=== PATIENT | female | born 1945 | race Caucasian/White ===

== ENCOUNTER 2018-11-10 15:09 | Emergency (ER) | payer BC, OTHER ==
--- NOTE | 2018-11-10 15:15 | PDOC ---
Attending Attestation - Resident Resident Name: Maria MChester - ED Attending Attestation I have performed the following: I have examined & evaluated the patient, The case was reviewed & discussed with the resident, I agree w/resident's findings & plan, Exceptions are as noted - HPI HPI: 11/10/18 16:05 73yo female with hx of knee pain and sciatica - hurt her knee back in july when she fell outside of [facility]. Last monday she was running to get in a family photo for the holidays when she hurt her knee and flared up her sciatica. No falls. No swelling, no warmth, no paresthesias. No weakness. Pt denies rashes. Pt has taken aleve intermittently with minimal relief. Pt applied heat to her knee this AM with worsening pain. Took Aleve at noon which has helped her pain. - Physicial Exam PE: 11/10/18 16:07 Gen: aaox3, nad heart: +s1s2 reg lungs: cta b/l abd: soft, nt/nd +bs back: no midline ttp, no stepoffs or deformities, no paraspinal ttp, no SI joint ttp ext: no c/c/e, no knee effusion, no ttp over the knee, negative anterior drawer , negative vargus and valgus stress testing, muscle strength 5/5 LE, sensation intact, pedal pulses intact, FROM of the knee neuro: sensation intact, muscle strength 5/5, ambulatory with a steady gait. - Medical Decision Making 11/10/18 15:15 I, Dr. Krystyna Dumont, DO, attest that this document has been prepared under my direction and personally reviewed by me in its entirety. I further attest, that it accurately reflects all work, treatment, procedures and medical decision -making performed by me. 11/10/18 16:09 a/p: 73yo female with hx of sciatica and knee pain -suspect arthritis -xray shows arthritis changes -pt with normal msk exam -suspect arthritis flare and sciatica -pt follows with Dr. Lorenzo -feels better after tylenol -discussed ice instead of heat -discussed naprosyn -discussed follow up with Dr. Lorenzo -stable for d/c to home
[2018-11-10] MEDS ORDERED: ACETAMINOPHEN 500 MG TABLET (FP) PO ONE (15:24)
[2018-11-10 15:25] VITALS: BP 174/74; PULSE 60; TEMP 97.4; BMI 27.3
[2018-11-10] MEDS ORDERED: ACETAMINOPHEN 500 MG TABLET (FP) ONE (15:28)
--- NOTE | 2018-11-10 15:40 | PDOC ---
History of Present Illness - General Chief Complaint: Pain Stated Complaint: RIGHT KNEE PAIN 2 WEEKS Time Seen by Provider: 11/10/18 15:14 - History of Present Illness Initial Comments: 11/10/18 15:42 73f with pmh of osteoarthritis, presents to the Ed with acute on chronic knee pain and sciatica over the right lower extremity. She usually has had pain over the left knee, receive a cartilage injection over the summer in both knees. She also fell over her knee after tripping back in May. Usually sees Dr. Lorenzo for her orthopedic needs. She can ambulate but pain is worse after overuse. Took two aleves today with a heat pad, felt some relief. 11/10/18 15:52 11/10/18 16:16 Past History - Past Medical History Allergies/Adverse Reactions: Allergies Allergy/AdvReac Type Severity Reaction Status Date / Time rabeprazole sodium Allergy Severe Hives Verified 12/12/13 08:00 [From Aciphex] Home Medications: Ambulatory Orders Atorvastatin Ca [Lipitor] 20 mg PO HS 12/12/13 Nebivolol [Bystolic -] 5 mg PO BID 12/12/13 [place]-3 Acid Ethyl Esters [Lovaza -] 1 gm PO DAILY 12/12/13 Aspirin [Adult Aspirin Regimen] 81 mg PO DAILY 11/10/18 COPD: No HTN: Yes Hypercholesterolemia: Yes - Suicide/Smoking/Psychosocial Hx Smoking History: Never smoked Have you smoked in the past 12 months: No Information on smoking cessation initiated: No Hx Alcohol Use: No Drug/Substance Use Hx: No Substance Use Type: None Review of Systems - Review of Systems Able to Perform ROS?: Yes Is the patient limited Pakistani proficient: No Constitutional: No: Symptoms Reported HEENTM: No: Symptoms Reported Respiratory: No: Symptoms reported Cardiac (ROS): No: Symptoms Reported ABD/GI: No: Symptoms Reported : No: Symptoms Reported Musculoskeletal: Yes: See HPI Integumentary: No: Symptoms Reported Neurological: No: Symptoms reported All Other Systems: Reviewed and Negative *Physical Exam - Vital Signs Last Vital Signs Temp Pulse Resp BP Pulse Ox 97.4 F L 60 16 174/74 H 98 11/10/18 15:10 11/10/18 15:10 11/10/18 15:10 11/10/18 15:10 11/10/18 15:10 - Physical Exam General Appearance: Yes: Nourished, Appropriately Dressed. No: Apparent Distress HEENT: positive: EOMI, JAIME, Normal ENT Inspection Respiratory/Chest: positive: Lungs Clear, Normal Breath Sounds. negative: Chest Tender, Respiratory Distress Cardiovascular: positive: Regular Rhythm, Regular Rate, S1, S2 Gastrointestinal/Abdominal: positive: Normal Bowel Sounds, Flat, Soft. negative : Tender Extremity: positive: Other (left knee non-tender, not swollen, not erythematous or warm. Negative anterior and posterior drawer signs) Neurologic: positive: Fully Oriented, Alert, Normal Mood/Affect, Normal Response , Motor Strength 5/5 Moderate Sedation - Procedure Monitoring Vital Signs: Procedure Monitoring Vital Signs Temperature 97.4 F L 11/10/18 15:10 Pulse Rate 60 11/10/18 15:10 Respiratory Rate 16 11/10/18 15:10 Blood Pressure 174/74 H 11/10/18 15:10 O2 Sat by Pulse Oximetry (%) 98 11/10/18 15:10 ED Treatment Course - Medications Given in the ED: ED Medications Discontinued Medications Generic Name Dose Route Start Last Admin Trade Name Freq PRN Reason Stop Dose Admin Acetaminophen 1,000 mg 11/10/18 15:24 11/10/18 15:29 Tylenol - PO 11/10/18 15:25 1,000 mg ONCE ONE Administration Medical Decision Making - Medical Decision Making 11/10/18 15:47 73f with osteoarthritis presetns with acute on chronic arthritis knee pain. Will still obtain xray to r/o any other etiologies like fractures but unlikely due to physical exam. As the patient already took Aleve today we will treat with tylenol. 11/10/18 16:16 Patient feels better, ok to discharge with follow up with Dr. Lorenzo. *DC/Admit/Observation/Transfer Diagnosis at time of Disposition: Osteoarthritis - Discharge Dispostion Disposition: HOME Condition at time of disposition: Stable Decision to Admit order: No - Referrals - Patient Instructions Printed Discharge Instructions: DI for Osteoarthritis, DI for Sciatica Additional Instructions: Follow up with Dr. Lorenzo. Come back to the emergency department for any new, worsening or concerning symptom. - Post Discharge Activity
== END 2018-11-10 16:26 | disposition home or self-care (01) ==
LOC: FER 15:09
DX: M19.90 Unspecified osteoarthritis, unspecified site (principal); G89.29 Other chronic pain; I10 Essential (primary) hypertension
CPT/HCPCS: 73562-TC-RT-FY; 99282-25

== ENCOUNTER 2020-06-09 06:03 | Day surgery (SDC) | payer BC ==
[2020-06-09] MEDS ORDERED: CEFAZOLIN 2 GM in DEXTROSE 5%-WATER - 50 ML IVPB ONE (06:19)
[2020-06-09] MEDS ORDERED: TRANEXAMIC ACID 1000 MG/10 ML VIAL IVPUSH ONE (06:19)
[2020-06-09] MEDS ORDERED: MIDAZOLAM HCL 2 MG/2 ML SINGLE DOSE VIAL ONE ×2 (06:53)
[2020-06-09] MEDS ORDERED: BUPIVACAINE HCL/PF 0.5% (5MG/ML) 10 ML VIAL ONE ×2 (06:54→07:37)
[2020-06-09 06:57] VITALS: BMI 26.7
[2020-06-09] MEDS: CELECOXIB 200 MG CAPSULE PO ONE ×2 (07:00→10:56)
[2020-06-09] MEDS ORDERED: ceFAZolin SODIUM 1 GM VIAL ONE ×2 (07:05→07:17)
[2020-06-09] MEDS ORDERED: THROMBIN (RECOMBINANT) 5,000 UNIT VIAL TP ONE (07:05)
[2020-06-09] MEDS ORDERED: PROPOFOL 20 ML ONE ×2 (07:17)
[2020-06-09] MEDS ORDERED: ONDANSETRON 4 MG/2 ML VIAL IVPUSH PRN (07:57)
[2020-06-09] MEDS ORDERED: MAG HYDROX/AL HYDROX/SIMETH 30 ML UNIT-DOSE CUP PO PRN (07:57)
--- NOTE | 2020-06-09 07:59 | HP ---
[facility] - Chief Complaint Chief Complaint: left knee pain - Past Medical History Allergies/Adverse Reactions: Allergies Allergy/AdvReac Type Severity Reaction Status Date / Time rabeprazole sodium Allergy Severe Hives Verified 12/12/13 08:00 [From Aciphex] - Current Medications Current Medications: Home Medications Medication Instructions Recorded Nebivolol [Bystolic -] 10 mg PO DAILY 12/12/13 Aspirin [Adult Aspirin Regimen] 81 mg PO DAILY 11/10/18 Cholecalciferol (Vitamin D3) 2,000 unit PO DAILY 05/29/20 [Vitamin D3] Icosapent Ethyl [Vascepa] 2 gm PO BID 05/29/20 Pitavastatin Calcium [Livalo] 4 mg PO HS 05/29/20 [facility]ellite Physical Exam - Physical Examination Vital Signs: Vital Signs Period Temp Pulse Resp BP Sys/Leal Pulse Ox Last 24 Hr 98.4 F 66 18 163/83 96 General Appearance: Well Nourished, Well Developed, Alert & Oriented x3 ENT: Clear Lung: Normal air movement Extremities: Other (left knee- + swelling, + ttp medially, decr rom, nvi, xrays show grade 4 medial djd) Neurological: Intact, Alert, Oriented [facility]ellite Impression/Plan - Impression/Plan Impression: left knee medial djd Operative Procedure: left medial nataliia ukr Date to be Performed: 06/09/20
[2020-06-09] MEDS ORDERED: LACTATED RINGERS SOLUTION 1,000 ML IV SCH (08:00)
[2020-06-09] MEDS ORDERED: EPHEDRINE SULFATE/0.9% NACL/PF 50 MG/10 ML SYRINGE NR ONE (08:21)
[2020-06-09] MEDS ORDERED: THROMBIN (BOVINE) 5,000 UNIT VIAL TP ONE ×2 (08:30→08:54)
[2020-06-09] MEDS ORDERED: GELATIN, ABSORBABLE 100 EACH SPONGE TP ONE ×2 (08:30→08:54)
[2020-06-09] MEDS ORDERED: BUPIVICAINE 0.25%/MORPH PF/KETOROLAC - 51ML DISP.SYRINGE IA ONE ×4 (08:31→13:10)
--- NOTE | 2020-06-09 09:29 | OP ---
Operative Note - Note: Operative Date: 06/09/20 (alexia) Pre-Operative Diagnosis: left knee medial djd Operation: left medial nataliia ukr Post-Operative Diagnosis: Same as Pre-op Surgeon: Diomedes Duran Event Crew Technician: Joaquin Wu ([facility]) Anesthesia: Spinal, Local Specimens Removed: bone fragments Estimated Blood Loss (mls): 100
[2020-06-09] MEDS: MULTIVITAMINS (DAILY MVI) TABLET (FP) PO SCH (10:57)
[2020-06-09] MEDS ORDERED: oxyCODONE HCL 5 MG TABLET PO PRN (11:25)
[2020-06-09] MEDS: ACETAMINOPHEN 325 MG TABLET (FP) PO SCH ×3 (11:51→23:33)
[2020-06-09] MEDS: CEFAZOLIN 2 GM/D5W 2 GM/50 ML ML IVPB SCH ×2 (17:00→23:33)
[2020-06-09] MEDS: SENNOSIDES/DOCUSATE COMBO (SENNA PLUS) TABLET (UD) PO SCH (21:10)
[2020-06-09] MEDS ORDERED: ATORVASTATIN CA 20 MG TABLET (FP) PO SCH (22:00)
[2020-06-10] MEDS: oxyCODONE HCL 5 MG TABLET PO PRN ×2 (00:01→06:12)
[2020-06-10] MEDS: ACETAMINOPHEN 325 MG TABLET (FP) PO SCH (06:12)
[2020-06-10 06:49] VITALS: BP 134/58; PULSE 61; TEMP 97.9
[2020-06-10] MEDS ORDERED: ASPIRIN 325 MG TABLET PO SCH (08:00)
[2020-06-10] MEDS ORDERED: NEBIVOLOL 10 MG TABLET (FP) PO SCH (10:00)
[2020-06-10] MEDS: MULTIVITAMINS (DAILY MVI) TABLET (FP) PO SCH (10:40)
[2020-06-10] MEDS: SENNOSIDES/DOCUSATE COMBO (SENNA PLUS) TABLET (UD) PO SCH (10:40)
--- NOTE | 2020-06-10 11:03 | PN ---
Progress Note (short form) - Note Progress Note: Ortho Pt seen and examined s/p left medial nataliia ukr pod #1 Selected Entries 06/10/20 06:00 Temperature 97.9 F Pulse Rate 61 Respiratory 18 Rate Blood Pressure 134/58 L Dressing c/d/i, calf soft, nt rom 0-40, nvi a/p PT dvt ppx pain control d/c home today f/u in 1 week
--- NOTE | 2020-06-10 11:05 | DS ---
Physical Examination Vital Signs: Vital Signs Temperature 97.9 F 06/10/20 06:00 Pulse Rate 61 06/10/20 06:00 Respiratory Rate 18 06/10/20 06:00 Blood Pressure 134/58 L 06/10/20 06:00 O2 Sat by Pulse Oximetry (%) 99 06/10/20 06:00 Discharge Summary Problems reviewed: Yes Reason For Visit: OSTEOARTHRITIS Procedures: Principal: left medial nataliia ukr Hospital Course: admitted for elective left medial nataliia ukr, post-op per protocol, stable for d/c Condition: Good - Instructions Diet, Activity, Other Instructions: Post-op Instructions-Partial Knee Replacement Call the office for a follow-up appointment in 1 week - [phone] Aspirin 325mg daily for 6 weeks. Pain medication was sent into your pharmacy. Apply Graduated Compression Stockings (TEDs) to both lower extremities- remove daily for hygiene ONLY Apply Sequential Compression Device (SCDs) to both Lower extremities remove for PT and hygiene ONLY Apply cold packs to affected area for 15 minutes every 2 hours. Physical Therapist will come to your home for the first 5 days. You will be set up with outpatient PT at your first post-operative visit. Patient may ambulate as tolerated-encourage self care (at least every 2-3 hours while awake) with walker or cane Maintain Aquacel (waterproof) dressing to operative wound (will be removed by surgeon at first office visit) Shower with Aquacel dressing in place-if Aquacel integrity compromised, remove and apply dry sterile dressing and notify Orthopedist. DO NOT SHOWER unless Orthopedists approves without Aquacel dressing CONTACT THE OFFICE FOR ANY CHANGE IN YOUR CONDITION (for example-fever greater than 102 degrees, excessive bleeding from operative site, purulent drainage, severe swelling or pain) GO TO THE EMERGENCY ROOM IF THERE IS A MEDICAL EMERGENCY Knee Precautions: * Keep a rolled towel under affected heel while in bed or chair (to keep knee in extension) * Keep affected leg elevated except during mealtimes * DO NOT PLACE PILLOW UNDER AFFECTED KNEE * If you have any questions, please do not hesitate to call the office - [phone]. Referrals: Diomedes Duran MD [Staff Physician] - Disposition: VNS/HOME HEALTH CARE - Home Medications Comprehensive Discharge Medication List: Ambulatory Orders Nebivolol [Bystolic -] 10 mg PO DAILY 12/12/13 Cholecalciferol (Vitamin D3) [Vitamin D3] 2,000 unit PO DAILY 05/29/20 Icosapent Ethyl [Vascepa] 2 gm PO BID 05/29/20 Pitavastatin Calcium [Livalo] 4 mg PO HS 05/29/20 Aspirin [ASA -] 325 mg PO DAILY@0800 tablet 06/09/20 Oxycodone HCl/Acetaminophen [Percocet 5-325 mg Tablet] 1 - 2 tab PO Q6H #30 tab MDD 6 06/09/20
--- NOTE | 2020-06-10 12:18 | SPEC ---
DATE OF OPERATION: 06/09/2020 PREOPERATIVE DIAGNOSIS: Degenerative joint disease, left knee. POSTOPERATIVE DIAGNOSIS: Degenerative joint disease, left knee. PROCEDURE: Left medial unicompartmental knee replacement with robotic-assisted navigation (MAKOplasty) and patelloplasty. SURGICAL ATTENDING: Diomedes Duran MD RESIDENTIAL LIVING ASSISTANT: MARIELA Birmingham SECOND DYE TUB OPERATOR: Luis Armando Lorenzo MD ANESTHESIA: Regional and spinal. CLOSURE: Medial unicompartmental CARLOS components with a 2 femur, 2 tibia, and an 8 polyethylene; No. 1 Vicryl, fascia; 0 and 2-0, subcutaneous; 3-0 Monocryl subcuticular with skin glue; 4-0 undyed Vicryl for pin sites. ESTIMATED BLOOD LOSS: Negligible. COMPLICATIONS: None. CONDITION: To recovery in stable condition. DESCRIPTION OF OPERATIVE PROCEDURE: Patient was taken to the operating room on June 09, 2020. Spinal and regional anesthesia was administered by the anesthesiologist. IV Kefzol and TXA were administered prophylactically prior to the case. A well-padded pneumatic tourniquet was placed on the left proximal thigh. The left lower extremity was prepped and draped in the usual sterile fashion. A 6- to 8-cm longitudinal incision over the medial side of the patella from mid patella to the tibial tubercle was incised and was deepened using Bovie cautery. An arthrotomy was then made just medial to the patellar tendon and the patella. Subperiosteal dissection was done on the anteromedial proximal tibia all the way back to the MCL. Partial fat pad excision was performed, exposing the medial compartment. Checkpoint was malleable at both the femur and the tibia. Using 2 stab incisions in the femur 1 handbreadth above the patella on the femur and 2 stab incisions 1 handbreadth below the tibial tubercle on the tibia, 2 threaded pins were drilled in parallel fashion from anterior to posterior, going through the proximal cortex and engaging the 2nd but not through the 2nd cortex. To these threaded pins were fastened navigation rays, 1 on the femur and 1 on the tibia. The knee was then registered with the navigation device with the center of the rotation of the hip, medial and lateral malleoli, and multiple points both on the femur and on the tibia. Excellent registration of less than 0.5 mm was obtained on both to ensure adequate registration. The navigation device ensured us to "pop the bubbles" both on the femur and the tibia and that was performed and passed registration. The knee was then thoroughly inspected to remove all osteophytes both on the femur and the tibia. Also, osteophytes on the trochlea and on the surface of the patella were removed as well. The knee was then stressed with valgus stress at 0, 30, 60, 90, and 120 degrees of flexion. This propagated a looseness/tightness graft. The virtual positions of the components were then optimized to ensure an excellent graft. The tracking also was optimized by manipulating the virtual position to ensure that the femoral component articulated with the central portion of the tibial component. The robot was then brought into the field and was registered. The robot was used to bur the bone on both the femur and the tibia as to the specifications of the components. The trial components were then applied on both the femur and the tibia with an appropriate polyethylene insert. The knee was taken through a range of motion and found to have full extension, full flexion, with excellent stability. Stressing the graft revealed an excellent looseness/tightness graft with the trial components in place. The trial components were removed. The knee was thoroughly irrigated with a copious amount of antibiotic irrigation. The real components were then cemented in using modern generation cement techniques with antibiotic cement and pressurization. After the cement was hardened, the knee was thoroughly inspected to remove out all excess cement. The real polyethylene insert was then clipped into place. Range of motion and stability were again assessed to be as they were with the trials. At this time, the pins and the checkpoints were removed. The knee was again thoroughly irrigated. The arthrotomy was closed with No. 1 Vicryl, 0 and 2-0 subcutaneous, and 3-0 Monocryl subcuticular with skin glue for the skin, 4-0 undyed Vicryl for the pin sites. Sterile pressure dressing was placed over the knee. Patient awakened from anesthesia and transferred to recovery in stable condition. No complications. Estimated blood loss negligible. X-rays postoperatively revealed excellent position of the components. Deion [id number]
--- NOTE | 2020-06-10 14:07 | PN ---
Progress Note (short form) - Note Progress Note: Anesthesia postop note 75 y/o F s/p spinal anesthesia pnb for left nataliia knee POD#1, vss, aaox3, pain fairly well controlled, had pt today. No anesthesia complications.
== END 2020-06-10 15:10 | disposition home health service (06) ==
LOC: FASUSAT 06:03 → FM/S 11:23 → FASUSAT 13:09 → FM/S 13:09 → FASUSAT 06-10 15:10
PROVIDERS: ATTEND Orthopaedic Surgery
PROC: 8E0YXBZ Computer Assisted Procedure of Lower Extremity (ICD-10-PCS; 2020-06-09)
PROC: 8E0Y0CZ Robotic Assisted Procedure of Lower Extremity, Open Approach (ICD-10-PCS; 2020-06-09)
PROC: 0SRD0L9 Replacement of Left Knee Joint with Medial Unicondylar Synthetic Substitute, Cemented, Open Approach (ICD-10-PCS; principal; 2020-06-09 08:21)
DX: M17.12 Unilateral primary osteoarthritis, left knee (principal)
CPT/HCPCS: 20985; 27446; C1776; S2900; 73560-TC-LT-FY; 94760; 97010-GP; 97116-GP; 97163-GP

== ENCOUNTER 2021-02-09 22:13 | Emergency (ER) | payer OTHER, BC ==
[2021-02-09 22:25] VITALS: BMI 28.3
[2021-02-09] MEDS ORDERED: FAMOTIDINE 20 MG/50 ML IVPB 20 MG/50 ML MG IVPB ONE ×2 (22:51→23:20)
[2021-02-09] MEDS ORDERED: ACETAMINOPHEN 1000 MG/100 ML VIAL (NON FORMULARY) IVPB ONE (22:51)
[2021-02-09] MEDS ORDERED: SODIUM CHLORIDE 0.9% 500 ML INFUS.BAG IV ONE (22:51)
[2021-02-09] MEDS ORDERED: ONDANSETRON 4 MG/2 ML VIAL IVPUSH ONE (22:51)
[2021-02-09] MEDS ORDERED: ONDANSETRON 4 MG/2 ML VIAL ONE (23:20)
[2021-02-09] MEDS ORDERED: ACETAMINOPHEN INJECTION 100 ML IVPB ONE (23:20)
[2021-02-09 23:47] LABS: BASO % 0.3 % (0-2.0); EOS % 0.5 % (0-4.5); HEMATOCRIT 42.5 % (32.4-45.2); HEMOGLOBIN 14.5 GM/dL (10.7-15.3); LYMPH % 8.5 % (8-40); MCH 30.1 pg (25.7-33.7); MCHC 34.3 g/dl (32.0-36.0); MEAN PLT VOLUME 9.2 fl (7.5-11.1); MONO % 2.6 % (3.8-10.2); NEUT % 88.1 % (42.8-82.8); PLATELET COUNT 281 K/MM3 (134-434); RBC 4.83 M/mm3 (3.60-5.2); RDW 15.8 % (11.6-15.6); WHITE BLOOD COUNT 17.6 K/mm3 (4.0-10.0)
[2021-02-10 00:06] LABS: CHLORIDE 102 mmol/L (98-107); POTASSIUM 4.3 mmol/L (3.5-5.1); SODIUM 139 mmol/L (136-145)
[2021-02-10 00:09] LABS: ANION GAP 8 MMOL/L (8-16); BLOOD UREA NITROGEN 22.5 mg/dL (7-18); CALCIUM 10.4 mg/dL (8.5-10.1); CO2 29 mmol/L (21-32); GLUCOSE,RANDOM 132 mg/dL (74-106); LIPASE 55 U/L (73-393)
[2021-02-10] MEDS ORDERED: ONDANSETRON 4 MG/2 ML VIAL IVPUSH ONE (00:09)
[2021-02-10] MEDS ORDERED: MAG HYDROX/AL HYDROX/SIMETH 30 ML UNIT-DOSE CUP PO ONE (00:09)
[2021-02-10 00:10] LABS: ALBUMIN 4.3 g/dl (3.4-5.0); MAGNESIUM 2.2 mg/dL (1.8-2.4)
[2021-02-10] MEDS ORDERED: SODIUM CHLORIDE 0.9% 500 ML INFUS.BAG IV ONE (00:10)
[2021-02-10 00:12] LABS: CREATININE 0.8 mg/dL (0.55-1.3); SGOT/AST 31 U/L (15-37); SGPT/ALT 33 U/L (13-61); TRIGLYCERIDES 120 mg/dL (0-150)
[2021-02-10 00:14] LABS: BILIRUBIN,TOTAL 0.3 mg/dL (0.2-1); CHOLESTEROL 183 mg/dL (50-200); TOT PROT 8.1 g/dl (6.4-8.2); TRIGLYCERIDES 123 mg/dL (0-150)
[2021-02-10] MEDS ORDERED: MAG HYDROX/AL HYDROX/SIMETH 30 ML UNIT-DOSE CUP ONE (00:14)
[2021-02-10] MEDS ORDERED: ONDANSETRON 4 MG/2 ML VIAL ONE (00:14)
[2021-02-10 00:15] LABS: ALK PHOS 81 U/L (45-117); LDL CHOLESTEROL (ONLY SJRH) 86 mg/dL (5-100)
[2021-02-10 00:17] LABS: HDL CHOLESTEROL 69 mg/dL (40-60)
[2021-02-10 03:57] LABS: URINE APPEARANCE CLEAR; URINE BACTERIA 0 /uL (0-1359); URINE BILIRUBIN NEGATIVE (NEGATIVE); URINE COLOR YELLOW; URINE GLUCOSE (UA) TRACE (NEGATIVE); URINE KETONE NEGATIVE (NEGATIVE); URINE LEUK ESTERASE NEGATIVE (NEGATIVE); URINE NITRITE NEGATIVE (NEGATIVE); URINE PROTEIN NEGATIVE (NEGATIVE); URINE UROBILINOGEN 0.2 mg/dL (0.2-1.0)
[2021-02-10] MEDS ORDERED: CEFTRIAXONE 1 GM in DEXTROSE 5%-WATER - 100 ML IVPB ONE (04:14)
[2021-02-10] MEDS ORDERED: CEFTRIAXONE 1 GM/50 ML BAG ONE (04:45)
[2021-02-10 05:37] VITALS: BP 136/63; PULSE 77; TEMP 98.1
[2021-02-10 05:56] LABS: URINE WBC 0.1 /uL (0-25.8)
[2021-02-10 05:57] LABS: EPI CELLS 0 /uL (0-25.1); HYALINE CASTS 0.12 /uL (0-3.1)
[2021-02-10 05:58] LABS: URINE RBC 109.1 /uL (0-23.9)
== END 2021-02-10 06:11 | disposition home or self-care (01) ==
LOC: JER 22:13
PROC: 3E033GC Introduction of Other Therapeutic Substance into Peripheral Vein, Percutaneous Approach (ICD-10-PCS; principal; 2021-02-09)
DX: R11.10 Vomiting, unspecified (principal); R31.9 Hematuria, unspecified
CPT/HCPCS: 36415; 71045-TC-FY; 80053; 80061; 81003; 82550; 83605; 83690; 83721; 83735; 84478; 84484; 85025; 85730; 87086; 93005; 93010; 99285-25; C9803; J0131; U0003; U0005

== ENCOUNTER 2023-12-06 22:08 | Inpatient (IN) | payer OTHER, BC ==
[2023-12-06] MEDS ORDERED: FAMOTIDINE 20 MG/50 ML IVPB 20 MG/50 ML MG IVPB ONE (23:47)
[2023-12-06] MEDS ORDERED: ONDANSETRON 4 MG/2 ML VIAL IVPUSH ONE (23:47)
[2023-12-06] MEDS ORDERED: ACETAMINOPHEN 1000 MG/100 ML BAG IVPB ONE (23:48)
[2023-12-07] MEDS ORDERED: SODIUM CHLORIDE 0.9% 500 ML INFUS.BAG IV ONE (00:05)
[2023-12-07] MEDS ORDERED: ACETAMINOPHEN INJECTION 100 ML IVPB ONE (00:08)
[2023-12-07] MEDS ORDERED: ONDANSETRON 4 MG/2 ML VIAL ONE ×2 (00:08→06:11)
[2023-12-07] MEDS ORDERED: FAMOTIDINE 20 MG/50 ML IVPB 20 MG/50 ML MG IVPB ONE (00:09)
[2023-12-07 00:40] LABS: BASO % 0.4 % (0-2.0); EOS % 0.2 % (0-4.5); HEMATOCRIT 42.1 % (32.4-45.2); HEMOGLOBIN 14.4 GM/dL (10.7-15.3); LYMPH % 11.4 % (8-40); MCH 30.6 pg (25.7-33.7); MCHC 34.1 g/dl (32.0-36.0); MEAN CELL VOLUME 89.7 fl (80-96); MEAN PLT VOLUME 8.4 fl (7.5-11.1); MONO % 2.4 % (3.8-10.2); NEUT % 85.6 % (42.8-82.8); PLATELET COUNT 289 10^3/uL (134-434); RBC 4.69 M/mm3 (3.60-5.2); RDW 13.8 % (11.6-15.6)
[2023-12-07 00:48] LABS: INR 0.97 (0.83-1.09); PROTHROMBIN TIME (PATIENT) 11.2 SEC (9.7-13.0)
[2023-12-07 00:51] LABS: ACTIVATED PTT 31.3 SECONDS (25.2-36.5)
[2023-12-07] MEDS ORDERED: METOCLOPRAMIDE HCL INJECTION 10 MG/2 ML VIAL IVPB ONE (01:06)
[2023-12-07 01:07] LABS: POTASSIUM 3.8 mmol/L (3.5-5.1)
[2023-12-07] MEDS ORDERED: METOCLOPRAMIDE HCL INJECTION 10 MG/2 ML VIAL ONE (01:07)
[2023-12-07 01:08] LABS: CALCIUM 10.2 mg/dL (8.5-10.1)
[2023-12-07 01:09] LABS: ALBUMIN 4.3 g/dl (3.4-5.0); BLOOD UREA NITROGEN 21.6 mg/dL (7-18)
[2023-12-07 01:12] LABS: CREATININE 0.9 mg/dL (0.55-1.3)
[2023-12-07 01:14] LABS: BILIRUBIN,TOTAL 0.3 mg/dL (0.2-1); TOT PROT 8.4 g/dl (6.4-8.2)
[2023-12-07] MEDS ORDERED: morphine SULFATE 4 MG/ML VIAL IVPUSH ONE (01:26)
[2023-12-07] MEDS ORDERED: morphine SULFATE 4 MG/ML VIAL ONE (01:26)
[2023-12-07 02:17] LABS: EPI CELLS 10 /uL (0-25.1); HYALINE CASTS 0 /uL (0-3.1); PH,URINE 5.5 (5.0-8.0); URINE APPEARANCE CLEAR; URINE BACTERIA 17 /uL (0-1359); URINE BILIRUBIN NEGATIVE (NEGATIVE); URINE COLOR YELLOW; URINE GLUCOSE (UA) NEGATIVE (NEGATIVE); URINE KETONE NEGATIVE (NEGATIVE); URINE LEUK ESTERASE NEGATIVE (NEGATIVE); URINE NITRITE NEGATIVE (NEGATIVE); URINE PROTEIN 1+ (NEGATIVE); URINE RBC 127 /uL (0-23.9); URINE UROBILINOGEN 0.2 mg/dL (0.2-1.0); URINE WBC 27 /uL (0-25.8)
[2023-12-07] MEDS ORDERED: LACTATED RINGERS SOLUTION 1000 ML INFUS.BAG IV ONE (05:37)
[2023-12-07] MEDS ORDERED: ONDANSETRON 4 MG/2 ML VIAL IVPUSH ONE (06:03)
[2023-12-07] MEDS ORDERED: ACETAMINOPHEN 1000 MG/100 ML BAG IVPB PRN (09:31)
[2023-12-07] MEDS ORDERED: ONDANSETRON 4 MG/2 ML VIAL IVPUSH PRN (09:32)
[2023-12-07] MEDS ORDERED: ENOXAPARIN NA (PORCINE) 40 MG/0.4 ML DISP.SYRIN SQ ONE (11:25)
[2023-12-07] MEDS: DEXTROSE 5%-NORMAL SALINE 1,000 ML IV SCH ×2 (11:39→23:22)
[2023-12-07] MEDS: ENOXAPARIN NA (PORCINE) 40 MG/0.4 ML DISP.SYRIN SQ SCH (11:40)
[2023-12-08 02:05] VITALS: BMI 27.0
[2023-12-08 02:54] VITALS: RESP 18
[2023-12-08] MEDS: DEXTROSE 5%-NORMAL SALINE 1,000 ML IV SCH (09:26)
[2023-12-08] MEDS: ENOXAPARIN NA (PORCINE) 40 MG/0.4 ML DISP.SYRIN SQ SCH (09:27)
[2023-12-08 10:14] LABS: BASO % 0.4 % (0-2.0); EOS % 3.8 % (0-4.5); HEMATOCRIT 34.1 % (32.4-45.2); HEMOGLOBIN 11.3 GM/dL (10.7-15.3); LYMPH % 28.2 % (8-40); MCH 30.4 pg (25.7-33.7); MEAN PLT VOLUME 8.6 fl (7.5-11.1); MONO % 9.3 % (3.8-10.2); NEUT % 58.3 % (42.8-82.8); PLATELET COUNT 224 10^3/uL (134-434); RBC 3.71 M/mm3 (3.60-5.2); RDW 13.8 % (11.6-15.6); WHITE BLOOD COUNT 5.6 K/mm3 (4.0-10.0)
[2023-12-08 10:36] LABS: POTASSIUM 3.9 mmol/L (3.5-5.1)
[2023-12-08 11:08] LABS: CREATININE 0.7 mg/dL (0.55-1.3); PHOSPHOROUS 1.9 mg/dL (2.5-4.9)
[2023-12-08 11:09] LABS: BILIRUBIN,TOTAL 0.3 mg/dL (0.2-1)
[2023-12-08 11:13] LABS: ALBUMIN 2.9 g/dl (3.4-5.0); CALCIUM 8.6 mg/dL (8.5-10.1); TOT PROT 5.8 g/dl (6.4-8.2)
[2023-12-08] MEDS ORDERED: POTASSIUM PHOSPHATE 15 MM in DEXTROSE 5%-WATER - 250 ML IVPB ONE (12:00)
[2023-12-08 14:36] VITALS: BP 131/74; PULSE 72; TEMP 98.5
== END 2023-12-08 17:00 | disposition home or self-care (01) | DRG 390 ==
LOC: JER 22:08 → JERBED 12-07 05:59 → J6S 12-07 19:03
PROVIDERS: ADMIT Internal Medicine; ATTEND Internal Medicine
DX: K56.7 Ileus, unspecified (principal); E78.5 Hyperlipidemia, unspecified; K21.9 Gastro-esophageal reflux disease without esophagitis; R11.2 Nausea with vomiting, unspecified; I10 Essential (primary) hypertension
CPT/HCPCS: 0241U-QW; 36415; 74019-TC-FY; 74177-TC; 80053; 81003; 83605; 83690; 83735; 84100; 84484; 85025; 85610; 85730; 87086; 87186; 93005; 93010; 99285-25; Q9967